=== PATIENT | female | born 1995 | race Caucasian/White ===

== ENCOUNTER 2017-10-23 00:23 | Inpatient (IN) ==
[2017-10-23] MEDS ORDERED: LORazepam 0.5 MG Tablet PO ONE (00:43)
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
[2017-10-23 01:06] LABS: Baso # (Auto) 0.1 th/mm3 (0.0-0.2); Baso % (Auto) 0.9 % (0.0-2.0); Eos # (Auto) 0.1 th/mm3 (0.0-0.4); Eos % (Auto) 1.3 % (0.0-4.0); Hematocrit 39.3 % (35.0-46.0); Hemoglobin 13.4 gm/dL (11.6-15.3); Lymph # (Auto) 2.6 th/mm3 (1.0-4.8); Lymph % (Auto) 42.7 % (9.0-44.0); Mean Corpuscular HGB Conc 34.1 % (32.0-36.0); Mean Corpuscular Hemoglobin 32.3 pg (27.0-34.0); Mean Corpuscular Volume 94.7 fL (80.0-100.0); Mean Platelet Volume 8.6 fL (7.0-11.0); Mono # (Auto) 0.4 th/mm3 (0.0-0.9); Mono % (Auto) 6.6 % (0.0-8.0); Neut % (Auto) 48.5 % (16.0-70.0); Platelet Count 212 th/mm3 (150-450); Red Blood Count 4.15 mil/mm3 (4.00-5.30); Red Cell Distribution Width 12.9 % (11.6-17.2); White Blood Count 6.2 th/mm3 (4.0-11.0)
[2017-10-23 01:30] LABS: Alanine Aminotransferase 15 U/L (10-53); Albumin 4.1 g/dL (3.4-5.0); Anion Gap 10 meq/L (5-15); Aspartate Aminotransferase 11 U/L (15-37); Blood Urea Nitrogen 13 mg/dL (7-18); Calcium 8.2 mg/dL (8.5-10.1); Carbon Dioxide 25.9 meq/L (21.0-32.0); Chloride 108 meq/L (98-107); Glomerular Filtration Rate Greater Than 89 mL/min (>89); Glucose,Random 85 mg/dL (74-106); Potassium 3.2 meq/L (3.5-5.1); Sodium 144 meq/L (136-145)
[2017-10-23 01:39] LABS: Alkaline Phosphatase 46 U/L (45-117); Total Protein 7.2 g/dL (6.4-8.2)
[2017-10-23 01:40] LABS: Alcohol 40 mg/dL (0-5)
[2017-10-23] MEDS ORDERED: Acetaminophen 325 MG Tablet PO PRN (14:17)
[2017-10-23] MEDS ORDERED: Aluminum/Magnesium/Simethacone Susp 30 ML UDC PO PRN (14:17)
[2017-10-23] MEDS ORDERED: LORazepam 1 MG Tablet PO PRN (14:19)
[2017-10-23] MEDS ORDERED: Melatonin 5 MG Tablet PO PRN (21:00)
[2017-10-24 06:17] VITALS: BP 119/75; PULSE 67; RESP 16; TEMP 97.4; O2SAT 96
[2017-10-24] MEDS ORDERED: Multivitamin/Minerals Therapeutic Tablet PO SCH (09:00)
[2017-10-24] MEDS ORDERED: Folic Acid 1 MG Tablet PO SCH (09:00)
[2017-10-24 10:33] LABS: Anion Gap 11 meq/L (5-15); Blood Urea Nitrogen 9 mg/dL (7-18); Calcium 8.7 mg/dL (8.5-10.1); Carbon Dioxide 27.5 meq/L (21.0-32.0); Chloride 105 meq/L (98-107); Glomerular Filtration Rate Greater Than 89 mL/min (>89); Glucose,Random 92 mg/dL (74-106); Potassium 3.6 meq/L (3.5-5.1); Sodium 143 meq/L (136-145)
[2017-10-24 10:34] LABS: Cholesterol 142 mg/dL (120-200)
[2017-10-24 10:37] LABS: HDL Cholesterol 61.7 mg/dL (40.0-60.0); LDL Cholesterol,Calculated 68 mg/dL (0-99); Triglycerides 60 mg/dL (42-150)
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
[2017-10-24 12:55] LABS: Hemoglobin A1c 4.5 % (4.3-6.0)
== END 2017-10-24 11:35 | disposition home or self-care (01) ==
LOC: NEDAMB 00:23 → NEDA 14:22 → H270 15:10
PROVIDERS: ADMIT Psychiatry & Neurology Psychiatry; ATTEND Psychiatry & Neurology Psychiatry